=== PATIENT | female | born 1990 | race Caucasian/White ===

== ENCOUNTER 2018-09-11 20:14 | Inpatient (IN) ==
[2018-09-12] MEDS ORDERED: Temazepam 15 MG Capsule PO PRN (09:57)
[2018-09-12] MEDS ORDERED: Bisacodyl 10 MG Supp RECTAL PRN (09:57)
[2018-09-12] MEDS: Sod Chloride 0.9% Inj 1,000 ML IV.CONT SCH ×2 (10:09→19:10)
--- NOTE | 2018-09-12 10:58 | P.HPIM ---
History of Present Illness Primary Care Physician: No Primary Care Physician History of Present Illness: 28-year-old white female being admitted for intractable abdominal pain Patient was in her [facility] until 3 days ago when she began experiencing diffuse abdominal pain, that started in the right side and progressed to the left. Associated with nausea and vomiting, even on an empty stomach, described a bilious color to her emesis but denies any coffee-ground emesis or elias blood. Reports that eating meals significantly worsened her pain, whereas laying flat and bending her knees up to her chest ease the pain n. Symptoms persisted , last night developed a temp of 102 and then decided to go to the ER and [place]. Denies any chest pain. In the ED she had a CT abdomen done which was read as showing mild small bowel thickening as well as inflammation. LFTs were significantly elevated in the thousands. I independently reviewed the CT scan and saw at least moderate stool retention. Patient was given morphine and IV fluids. EKG was also performed, which I independently reviewed and frankly I do not see findings significant enough that would suggest anterior ischemia, but rather an normal EKG for this patient's age. Patient reports having a pre-existing diagnosis of hepatitis C, says she took the medication for 6 months while in [place] and said that she was cured. Review of Systems Review of Systems: all other systems reviewed are negative PMFSH History History Provided By: Patient Medical History Medical History Depression (Acute) Kidney stones (Acute) Ovarian cyst (Acute) Surgical History Surgical History H/O tubal ligation (Acute) History of oral surgery (Acute) Social History Social History Substance History: No History of Abuse Second Hand Smoke Exposure: Yes Smoking Status: Current every day smoker Tobacco Type: Cigarettes How Often Do You Have a Drink Containing Alcohol: Never Recent Travel in [facility] within the Last 8 Weeks: No Recent Out of Country Travel within the Last 8 Weeks: No Medications and Allergies Allergies Allergy/AdvReac Type Severity Reaction Status Date / Time latex Allergy Severe HIVES Verified 09/11/18 21:14 Penicillins Allergy Severe Anaphylaxis Verified 09/11/18 21:14 promethazine Allergy Severe BURNING Verified 09/11/18 21:14 SENSATION Home Medications Medication Instructions Recorded Confirmed Type Klonopin 09/11/18 History Zoloft 09/11/18 History Active Medications: Active Medications Al Hydroxide/Mg Hydroxide (Milk Of Magnesia Liq) 30 ml PO Q12H PRN PRN Reason: Mild Constipation Bisacodyl (Dulcolax Supp) 10 mg RECTAL DAILY PRN PRN Reason: SEVERE CONSITIPATION Sodium Chloride (Ns Inj) 1,000 mls @ 100 mls/hr IV.CONT .Q10H MINDY Last Admin: 09/12/18 10:09 Dose: 100 mls/hr Lactulose (Lactulose Liq) 30 ml PO DAILY PRN PRN Reason: SEVERE CONSITIPATION Ondansetron HCl (Zofran Inj) 4 mg IV.PUSH Q6H PRN PRN Reason: NAUSEA OR VOMITING Oxycodone HCl (Roxicodone) 5 mg PO Q6H PRN PRN Reason: PAIN SCALE 6 TO 10 Last Admin: 09/12/18 10:33 Dose: 5 mg Senna/Docusate Sodium (Dianne-Colace) 1 tab PO BID [facility] Sennosides (Senokot) 17.2 mg PO Q12H PRN PRN Reason: Moderate Constipation Sodium Chloride (Ns Flush) 2 ml IV.FLUSH BID MINDY Sodium Chloride (Ns Flush) 2 ml IV.FLUSH PRN PRN PRN Reason: FLUSH AFTER USING IV ACCESS Temazepam (Restoril) 15 mg PO HS PRN PRN Reason: INSOMNIA Physical Exam Vital signs: Vital Signs 09/12/18 08:59 Temperature 97.4 F L Pulse Rate 50 L Respiratory Rate 22 Blood Pressure 110/53 L Pulse Oximetry 97 Intake & Output 09/11/18 09/12/18 09/12/18 18:59 06:59 18:59 Weight 52.617 kg Other: Date of Last Bowel Movement 09/11/18 Weight On Admission 52.617 kg Narrative: VS: afebrile GENERAL: Awake and alert, mild distress secondary to pain SKIN: Warm and dry. EYES: No scleral icterus. No injection or drainage. ENT: No nasal bleeding or discharge. Mucous membranes pink and moist. CARDIOVASCULAR: Regular rate and rhythm. no murmurs RESPIRATORY: No accessory muscle use. Clear to auscultation. Breath sounds equal bilaterally. GASTROINTESTINAL: Abdomen soft, nondistended, diffusely tender to palpation with more pronounced tenderness noted on deep palpation of RUQ Extremities: No clubbing, cyanosis, or edema. No obvious deformities. MUSCULOSKELETAL: grossly intact ROM in upper and lower extremities proximally; adequate muscle bulk and tone for age and habitus NEUROLOGICAL: Awake and alert. No obvious cranial nerve deficits. No facial droop nor slurred speech noted. PSYCHIATRIC: Appropriate mood and affect; insight and judgment normal. Caprini VTE Risk Assessment Caprini VTE Risk Assessment: No/Low Risk (score <= 1) Caprini Risk Assessment Model: Point Value = 1 Point Value = 2 Point Value = 3 Point Value = 5 Age 41-60 Minor surgery BMI > 25 kg/m2 Swollen legs Varicose veins or History of unexplained or recurrent spontaneous Oral contraceptives or hormone replacement Sepsis (< 1 month) Serious lung disease, including pneumonia (< 1 month) Abnormal pulmonary function Acute myocardial infarction Congestive heart failure (< 1 month) History of inflammatory bowel disease Medical patient at bed rest Age 61-74 Arthroscopic surgery Major open surgery (> 45 min) Laparoscopic surgery (> 45 min) Malignancy Confined to bed (> 72 hours) Immobilizing plaster cast Central venous access Age >= 75 History of VTE Family history of VTE Factor V Leiden Prothrombin [id number] Lupus anticoagulant Anticardiolipin antibodies Elevated serum homocysteine Heparin-induced thrombocytopenia Other congenital or acquired thrombophilia Stroke (< 1 month) Elective arthroplasty Hip, pelvis, or leg fracture Acute spinal cord injury (< 1 month) Prophylaxis Regimen: Total Risk Factor Score Risk Level Prophylaxis Regimen 0-1 Low Early ambulation 2 Moderate Order ONE of the following: *Sequential Compression Device (SCD) *Heparin 5000 units SQ BID 3-4 Higher Order ONE of the following medications: *Heparin 5000 units SQ TID *Enoxaparin/Lovenox 40 mg SQ daily (WT < 150 kg, CrCl > 30 mL/min) *Enoxaparin/Lovenox 30 mg SQ daily (WT < 150 kg, CrCl > 10-29 mL/min) *Enoxaparin/Lovenox 30 mg SQ BID (WT < 150 kg, CrCl > 30 mL/min) AND/OR *Sequential Compression Device (SCD) 5 or more Highest Order ONE of the following medications: *Heparin 5000 units SQ TID (Preferred with Epidurals) *Enoxaparin/Lovenox 40 mg SQ daily (WT < 150 kg, CrCl > 30 mL/min) *Enoxaparin/Lovenox 30 mg SQ daily (WT < 150 kg, CrCl > 10-29 mL/min) *Enoxaparin/Lovenox 30 mg SQ BID (WT < 150 kg, CrCl > 30 mL/min) AND *Sequential Compression Device (SCD) Assessment and Plan Plan 28-year-old white female being admitted for intractable abdominal pain and acute hepatitis Intractable abdominal pain Likely secondary to acute hepatitis based upon LFT pattern mild to moderate constipation obtain hep C PCR Otherwise viral balance negative Obtain blood cultures given fever and monitor temps -Protonix, -obtain gallbladder ultrasound -Stool softeners, suppositories Nausea vomiting Likely secondary to above IV fluids, Zofran, diet as tolerated Bacterial vaginosis - abx H&P: Quality VTE Deep Vein Thrombosis/Pulmonary Embolism Present on Admission: No
--- NOTE | 2018-09-12 11:23 | US ---
EXAM DATE: 09/12/2018 11:20 AM EST AGE/SEX: 28 years / Female INDICATIONS: Nausea/vomiting. Abdominal pain. CLINICAL DATA: This is the patient's initial encounter. Patient reports that signs and symptoms have been present for 2 days and indicates a pain score of 8/10. MEDICAL/SURGICAL HISTORY: . Kidney stones. Ovarian cysts. Tubal ligation. Oral surgery. COMPARISON: DL, CT ABDOMEN & PELVIS W CONTRAST, 09/11/2018. . MEASUREMENTS: Liver:__ 18.4 cm. Common Bile Duct:__ 2mm. FINDINGS: Liver: Normal echogenicity without focal lesion or ductal dilatation. The liver slightly enlarged. Portal Vein: Hepatopedal flow seen in portal vein. Common Duct: No intraluminal mass or stone visualized. Gallbladder: Demonstrates no wall thickening or pericholecystic fluid. No stones visualized. Pancreas: The visualized portions are within normal limits Right Kidney: Normal echogenicity and cortical thickness. No mass or hydronephrosis. Other: None. CONCLUSION: 1. Liver slightly enlarged. Mild increased echogenicity to the right kidney compared to the liver wi thout evidence of obstruction. Electronically signed by: Cristian Cesar MD Board Certified Radiologist 09/12/2018 11:22 AM EST
[2018-09-12] MEDS ORDERED: Bisacodyl 10 MG Supp RECTAL ONE (12:34)
[2018-09-12] MEDS ORDERED: Methylnaltrexone Inj 12 MG/0.6 ML Vial SQ ONE (14:00)
[2018-09-12] MEDS: Senna/Docusate Sodium 8.6/50 MG Tablet PO SCH (22:56)
[2018-09-13] MEDS: Sod Chloride 0.9% Inj 1,000 ML IV.CONT SCH (05:00)
[2018-09-13 06:47] LABS: Baso % (Auto) 0.4 % (0.0-2.0); Eos # (Auto) 0.2 th/mm3 (0.0-0.4); Eos % (Auto) 3.1 % (0.0-4.0); Hematocrit 30.6 % (35.0-46.0); Hemoglobin 10.1 gm/dL (11.6-15.3); Lymph # (Auto) 2.5 th/mm3 (1.0-4.8); Lymph % (Auto) 37.3 % (9.0-44.0); Mean Corpuscular Volume 78.8 fL (80.0-100.0); Mean Platelet Volume 9.1 fL (7.0-11.0); Mono # (Auto) 0.5 th/mm3 (0.0-0.9); Mono % (Auto) 8.2 % (0.0-8.0); Neut # (Auto) 3.4 th/mm3 (1.8-7.7); Platelet Count 252 th/mm3 (150-450); Red Blood Count 3.88 mil/mm3 (4.00-5.30); Red Cell Distribution Width 17.4 % (11.6-17.2); White Blood Count 6.6 th/mm3 (4.0-11.0)
[2018-09-13 07:16] LABS: Chloride 110 meq/L (98-107); Potassium 4.3 meq/L (3.5-5.1); Sodium 141 meq/L (136-145)
[2018-09-13 07:20] LABS: Calcium 7.9 mg/dL (8.5-10.1)
[2018-09-13 07:21] LABS: Albumin 2.8 g/dL (3.4-5.0); Anion Gap 6 meq/L (5-15); Blood Urea Nitrogen 8 mg/dL (7-18); Carbon Dioxide 24.9 meq/L (21.0-32.0); Glucose,Random 84 mg/dL (74-106)
[2018-09-13 07:24] LABS: Alanine Aminotransferase 929 U/L (10-53); Aspartate Aminotransferase 434 U/L (15-37); Glomerular Filtration Rate Greater Than 89 mL/min (>89)
[2018-09-13 07:26] LABS: Total Protein 5.5 g/dL (6.4-8.2)
[2018-09-13 07:27] LABS: Alkaline Phosphatase 188 U/L (45-117)
[2018-09-13] MEDS: Senna/Docusate Sodium 8.6/50 MG Tablet PO SCH (09:07)
[2018-09-13 09:23] VITALS: BP 118/60; PULSE 44; RESP 20; TEMP 96.7; O2SAT 98
--- NOTE | 2018-09-13 11:13 | P.PNIM ---
Subjective Interval history: Nursing denies any deterioration since last night. Patient desiring to take a shower. Denies feeling lightheaded. Says her abdominal pain is better. Says eating is okay, able to tolerate p.o. Physical Exam Vital signs: Vital Signs 09/12/18 11:56 09/12/18 16:00 09/12/18 20:00 Temperature 96.9 F L 96.0 F L 97.2 F L Pulse Rate 55 L 52 L 46 L Respiratory Rate 22 18 18 Blood Pressure 111/60 116/72 120/56 L Pulse Oximetry 99 99 94 L 09/13/18 00:00 09/13/18 03:27 09/13/18 08:00 Temperature 98.4 F 98.7 F 96.7 F L Pulse Rate 56 L 58 L 44 L Respiratory Rate 18 18 20 Blood Pressure 125/67 135/68 118/60 Pulse Oximetry 94 L 18 L 98 Intake & Output 09/12/18 09/13/18 09/13/18 18:59 06:59 18:59 Intake Total 450 / 450 2340 / 2340 Output Total 450 / 450 Balance 450 / 450 1890 / 1890 Weight 52.617 kg 55.8 kg Intake: IV 2100 / 2100 NS Inj 1,000 ML @ 100 mls/hr IV 2100 / 2100 .CONT .Q10H MINDY Rx#:[id number] Oral 450 / 450 240 / 240 Output: Urine 450 / 450 Other: # Voids 3 Date of Last Bowel Movement 09/11/18 09/12/18 # Bowel Movements 0 Weight On Admission 52.617 kg Narrative: Clear lungs bilaterally, unlabored breathing Heart sounds regular rate and rhythm Awake alert, no acute distress Abdomen soft, nondistended, minimally tender to palpation diffusely No facial droop, no slurred speech Moving all 4 extremities Results Labs CBC & Chem 7: 09/13/18 05:10 09/13/18 05:10 Labs: Microbiology 09/12/18 11:45 Blood - Peripheral Aerobic Blood Culture - Preliminary No growth in 1 day 09/12/18 11:45 Blood - Peripheral Anaerobic Blood Culture - Preliminary No growth in 1 day 09/12/18 12:00 Blood - Peripheral Aerobic Blood Culture - Preliminary No growth in 1 day 09/12/18 12:00 Blood - Peripheral Anaerobic Blood Culture - Preliminary No growth in 1 day Imaging Imaging: Impressions Gallbladder Ultrasound 09/12/18 00:00 CONCLUSION: 1. Liver slightly enlarged. Mild increased echogenicity to the right kidney compared to the liver without evidence of obstruction. Assessment and Plan Plan 28-year-old white female being admitted for intractable abdominal pain and acute hepatitis Intractable abdominal pain Likely secondary to acute hepatitis based upon LFT pattern mild to moderate constipation hep C PCR pending Blood cultures so far negative, urine cultures definitively negative -Protonix, -Ultrasound is negative for any gallstones Nausea vomiting Likely secondary to above Much improved IV fluids, Zofran, diet as tolerated Bacterial vaginosis - abx Patient was originally anticipated to warrant at least a 2 midnight stay for acute hepatitis. However her overall clinical status improved faster than expected and she is now clinically stable for discharge. Will discharge patient, cover her for bacterial vaginosis, instructed patient that she needed to follow-up with GI as an outpatient to ensure LFTs normalize and to follow-up on the remaining hepatitis C labs. Progress Note: Quality VTE Deep Vein Thrombosis/Pulmonary Embolism Present on Admission: No
[2018-09-15 03:52] LABS: Hepatitis C RNA (PCR) log IUs 6.16
== END 2018-09-13 12:20 | disposition home or self-care (01) | DRG 443 ==
LOC: PH3 20:14 → PHEDDLT 20:14
PROVIDERS: ADMIT Hospitalist; ATTEND Hospitalist
CPT/HCPCS: 76705; 80053; 85025; 87040; 87522; 87902; J2212; J7030